=== PATIENT | male | born 1965 | race African-American/Black ===

== ENCOUNTER 2024-01-07 08:00 | Emergency (ER) | payer SELFPAY ==
[~2024-01-07] VITALS: Ht 180.3 cm; Wt 100.0 kg
[2024-01-07 08:06] VITALS: O2SAT 99
[2024-01-07 09:34] LABS: BASOPHILS % 0.2 % (0.0-2.0); DIFFERENTIAL COMMENT 0; EOSINOPHILS % 0.1 % (0.0-5.0); HEMATOCRIT. 35.5 % (42.0-52.0); LYMPHOCYTES % 7.2 % (20.0-50.0); MEAN CORPUSCULAR HEMOGLOBIN 23.3 pg (28.0-32.0); MEAN CORPUSCULAR HGB CONC 30.9 g/dL (31.0-37.0); MEAN CORPUSCULAR VOLUME 75.2 fL (80.0-94.0); MEAN PLATELET VOLUME 8.3 fl (7.4-10.4); MONOCYTES % 3.5 % (2.0-8.0); PLATELET 194 x1000/uL (130-400); RED BLOOD CELL COUNT 4.73 mill/uL (4.7-6.1); RED CELL DISTRIBUTION WIDTH 19.1 % (11.6-14.6); WHITE BLOOD COUNT 13.9 x1000/uL (4.5-11.0)
[2024-01-07 09:41] LABS: CHLORIDE 109 mEq/L (98-107); POTASSIUM 3.7 mEq/L (3.5-5.1); SODIUM 142 mEq/L (136-145)
[2024-01-07 09:42] LABS: CALCIUM 8.8 mg/dL (8.7-10.4); CARBON DIOXIDE 26 mEq/L (21-32)
[2024-01-07 09:46] LABS: TROPONIN I HIGH SENSITIVITY 6 ng/L (3.0-53)
[2024-01-07 09:47] LABS: CREATININE 0.9 mg/dL (0.6-1.3); GLUCOSE 132 mg/dL (70-105); UREA NITROGEN BLOOD 12 mg/dL (9-23)
[2024-01-07 09:48] LABS: ALBUMIN 3.7 g/dL (3.2-4.8)
[2024-01-07 09:49] LABS: ALANINE AMINOTRANSFERASE 13 IU/L (10-49); ASPARTATE AMINOTRANSFERASE 17 IU/L (<34); BILIRUBIN DIRECT 0.1 mg/dL (<=3.0); BILIRUBIN TOTAL 0.5 mg/dL (0.1-1.0)
[2024-01-07] MEDS: IOHEXOL-300 100 ML BOTTLE ONE (10:35)
[2024-01-07] MEDS: AMOXICILLIN/POTASSIUM CLAVULANATE 875/125MG TAB PO NR (11:49)
[2024-01-07] MEDS: TRAMADOL 50MG TABLET PO ONE (12:13)
[2024-01-07] MEDS ORDERED: AMOX1TAB16 MT (12:47)
[2024-01-07] MEDS ORDERED: NAPR-681 MT (12:47)
[2024-01-07 13:10] VITALS: BP 157/105; PULSE 88; RESP 15; TEMP 98.1
== END 2024-01-07 14:01 | disposition home or self-care (01) ==
LOC: ER 08:21
DX: K57.92 Diverticulitis of intestine, part unspecified, without perforation or abscess without bleeding (principal); I10 Essential (primary) hypertension
CPT/HCPCS: 80076; 80048; 83690; 85025; 86850; 86900; 86901; 84484; 36415; 74177; 93005; 99285; Q9967; Z7610 ×2

== ENCOUNTER 2024-04-24 06:54 | Inpatient (IN) | payer OTHER, MEDICAID ==
[2024-04-24] VITALS (61 sets, daily range): BP systolic 47–147; BP diastolic 37–124; PULSE 61–143; RESP 16–37; TEMP 36.22512–37.89192; O2SAT 83–100
[~2024-04-24] VITALS: Ht 175.3 cm; Wt 77.7 kg
[~2024-04-24 06:54] MED LIST: AMOX1TAB16 MT; NAPR-681 MT
[2024-04-24] MEDS ORDERED: NITROGLYCERIN 50MG PREMIX 250 ML IV PRN (07:15)
[2024-04-24] MEDS: NITROGLYCERIN 50MG PREMIX 250 ML IV PRN (07:20)
[2024-04-24 07:24] LABS: BASOPHILS % 1.1 % (0.0-2.0); EOSINOPHILS % 2.1 % (0.0-5.0); HEMATOCRIT. 37.5 % (42.0-52.0); HEMOGLOBIN. 11.7 g/dL (14.0-18.0); LYMPHOCYTES % 38.7 % (20.0-50.0); MEAN CORPUSCULAR HEMOGLOBIN 20.2 pg (28.0-32.0); MEAN CORPUSCULAR HGB CONC 31.2 g/dL (31.0-37.0); MEAN CORPUSCULAR VOLUME 64.9 fL (80.0-94.0); MEAN PLATELET VOLUME 8.8 fl (7.4-10.4); NEUTROPHILS % 50.1 % (40.0-76.0); PLATELET 244 x1000/uL (130-400); RED BLOOD CELL COUNT 5.78 mill/uL (4.7-6.1); RED CELL DISTRIBUTION WIDTH 22.5 % (11.6-14.6); WHITE BLOOD COUNT 11.1 x1000/uL (4.5-11.0)
[2024-04-24 07:37] LABS: CHLORIDE 108 mEq/L (98-107); INR 0.9; POTASSIUM 3.7 mEq/L (3.5-5.1); SODIUM 138 mEq/L (136-145)
[2024-04-24 07:38] LABS: CALCIUM 8.5 mg/dL (8.7-10.4); CARBON DIOXIDE 22 mEq/L (21-32)
[2024-04-24 07:42] LABS: ADD RBC MORPHOLOGY YES; DIFFERENTIAL COMMENT 1; TROPONIN I HIGH SENSITIVITY 20 ng/L (3.0-53)
[2024-04-24 07:43] LABS: UREA NITROGEN BLOOD 13 mg/dL (9-23)
[2024-04-24 07:44] LABS: GLUCOSE 314 mg/dL (70-105)
[2024-04-24 07:45] LABS: ALANINE AMINOTRANSFERASE 36 IU/L (10-49); ALBUMIN 4.1 g/dL (3.2-4.8); ASPARTATE AMINOTRANSFERASE 51 IU/L (<34); BILIRUBIN TOTAL 0.3 mg/dL (0.1-1.0); PROTEIN TOTAL 7.2 g/dL (6.0-8.3)
[2024-04-24 07:46] LABS: BILIRUBIN DIRECT < 0.1 mg/dL (<=3.0)
[2024-04-24] MEDS: SODIUM CHLORIDE 0.9% 1,000 ML IV ONE (07:46)
[2024-04-24 07:48] LABS: LACTIC ACID 5.4 mmol/L (0.4-2.0)
[2024-04-24] MEDS: CEFTRIAXONE 1GM/50ML 50 ML IV ONE (07:53)
[2024-04-24 08:06] LABS: CLARITY URINE CLEAR (CLEAR); COLOR URINE YELLOW (YELLOW); GLUCOSE URINE 3+ (NEGATIVE); KETONES URINE NEGATIVE (NEGATIVE); LEUKOCYTE ESTERASE URINE NEGATIVE (NEGATIVE); NITRITE URINE NEGATIVE (NEGATIVE); OCCULT BLOOD URINE NEGATIVE (NEGATIVE); PROTEIN URINE 2+ (NEGATIVE); SPECIFIC GRAVITY URINE 1.015 (1.005-1.030); UROBILINOGEN URINE 0.2 E.U./dL (0.2-1.0)
[2024-04-24 08:31] LABS: BG BASE EXCESS -1.7 mmol/L (-2.0-3.0); BG CARBOXYHEMOGLOBIN 0.6 % (0.5-1.5); BG FRACTION INSPIRED OXYGEN 100; BG HCO3 ACT 24.6 mmol/L (21.0-28.0); BG OXYHEMOGLOBIN 91.4 % (94.0-98.0); BG PH 7.327 (7.350-7.450); BG PO2 70.6 mmHg (83.0-108.0); BG SAMPLE SITE RIGHT RADIAL; BG TOTAL HEMOGLOBIN 11.7 g/dL (13.5-17.5); BG VENT MODE MASK - CPAP
[2024-04-24 08:35] LABS: BACTERIA URINE NONE SEEN; SQUAMOUS EPITHELIAL CELL URINE RARE /lpf (RARE/1+)
[2024-04-24 08:36] LABS: WBC URINE 0-2 /hpf (0-2)
[2024-04-24 08:37] LABS: RBC URINE 0-2 /hpf (0-2)
[2024-04-24] MEDS: AZITHROMYCIN 500MG/250ML 250 ML IV ONE (08:53)
[2024-04-24] MEDS ORDERED: ONDANSETRON HCL 4MG/2ML INJ IV PRN (09:15)
[2024-04-24] MEDS ORDERED: AZITHROMYCIN 500 MG in DEXT 5% WATER 250 ML IV SCH (09:15)
[2024-04-24] MEDS ORDERED: GUAIFENESIN 200MG/10ML SUGAR FREE UDC PO PRN (09:15)
[2024-04-24] MEDS ORDERED: ACETAMINOPHEN 325MG TABLET PO PRN ×2 (09:15)
[2024-04-24] MEDS ORDERED: DOCUSATE SODIUM 100MG CAPSULE PO PRN (09:15)
[2024-04-24] MEDS ORDERED: MAGNESIUM/ALUMINUM HYDROXIDE/SIMETHICONE 30ML UDC PO PRN (09:15)
[2024-04-24] MEDS ORDERED: DEXTROSE 50% WATER 50ML SYRINGE IV PRN (09:15)
[2024-04-24 09:58] LABS: IRON 28 ug/dL (65-175)
[2024-04-24] MEDS: NITROGLYCERIN OINT 1GM/INCH UDPKT TD SCH (09:58)
[2024-04-24] MEDS: FUROSEMIDE 40MG/4ML VIAL IVP SCH (09:58)
[2024-04-24 09:59] LABS: TRIGLYCERIDE 203 mg/dL (0-150)
[2024-04-24] MEDS: AMLODIPINE 5MG TABLET PO NR (09:59)
[2024-04-24 10:00] LABS: LDL CHOLESTEROL 126 mg/dL (5-100)
[2024-04-24 10:01] LABS: CHOLESTEROL 226 mg/dL (<200); HDL CHOLESTEROL 60 mg/dL (>55); TOTAL IRON BINDING CAPACITY 360 ug/dl (250-425)
[2024-04-24 10:02] LABS: T4 FREE 1.09 ng/dL (0.89-1.76); THYROID STIMULATING HORMONE 1.67 uIU/mL (0.55-4.78)
[2024-04-24 10:07] LABS: ETHANOL BLOOD < 10 mg/dL (<10)
[2024-04-24 10:08] LABS: TROPONIN I HIGH SENSITIVITY 84 ng/L (3.0-53)
[2024-04-24] MEDS: ENOXAPARIN 40MG/0.4ML SYR SUBCUT SCH (10:19)
[2024-04-24] MEDS ORDERED: PROPOFOL 10MG/ML 100ML 100 ML IV PRN (10:30)
[2024-04-24 11:00] LABS: BG BASE EXCESS -6.7 mmol/L (-2.0-3.0); BG CARBOXYHEMOGLOBIN 0.7 % (0.5-1.5); BG DEOXYHEMOGLOBIN 14.2 % (0.0-5.0); BG FRACTION INSPIRED OXYGEN 100; BG OXYGEN SATURATION 85.7 % (94.0-98.0); BG OXYHEMOGLOBIN 85.1 % (94.0-98.0); BG PCO2 57.6 mmHg (35.0-48.0); BG PH 7.199 (7.350-7.450); BG PO2 64.2 mmHg (83.0-108.0); BG SAMPLE SITE RIGHT RADIAL; BG TOTAL HEMOGLOBIN 13.5 g/dL (13.5-17.5); BG VENT MODE MASK - BIPAP
[2024-04-24] MEDS: INSULIN GLARGINE 100 UNITS/ML SUBCUT SCH (11:04)
[2024-04-24 11:07] LABS: TROPONIN I HIGH SENSITIVITY 128 ng/L (3.0-53)
[2024-04-24 11:35] LABS: ANISOCYTOSIS 3+; MICROCYTOSIS 3+
[2024-04-24 11:36] LABS: TARGET CELLS FEW
[2024-04-24 11:38] LABS: PLATELET ESTIMATE NORMAL
[2024-04-24 12:12] LABS: VITAMIN B12 SERUM 410 pg/mL (211-911)
[2024-04-24 12:13] LABS: FOLIC ACID (FOLATE) SERUM 15.26 ng/mL (>5.38)
[2024-04-24] MEDS ORDERED: PHENYLEPHRINE 50MG/250ML PMX 250 ML IV SCH (12:30)
[2024-04-24] MEDS ORDERED: PHENYLEPHRINE 50MG/250ML PMX IV PRN (12:45)
[2024-04-24] MEDS ORDERED: FENTANYL 2500MCG/250ML PMX 250 ML IV PRN (12:45)
[2024-04-24] MEDS: INSULIN LISPRO 100 UNITS/ML SUBCUT SCH (12:50)
[2024-04-24 12:54] LABS: BG BASE EXCESS -5.5 mmol/L (-2.0-3.0); BG CARBOXYHEMOGLOBIN 0.7 % (0.5-1.5); BG DEOXYHEMOGLOBIN 17.1 % (0.0-5.0); BG FRACTION INSPIRED OXYGEN 100; BG HCO3 ACT 23.7 mmol/L (21.0-28.0); BG METHEMOGLOBIN 0.1 % (0.5-1.5); BG OXYGEN SATURATION 82.8 % (94.0-98.0); BG OXYHEMOGLOBIN 82.1 % (94.0-98.0); BG PCO2 63.8 mmHg (35.0-48.0); BG PH 7.188 (7.350-7.450); BG PO2 58.2 mmHg (83.0-108.0); BG SAMPLE SITE LEFT RADIAL; BG TOTAL HEMOGLOBIN 13.4 g/dL (13.5-17.5); BG VENT MODE VENT - AC/PC
[2024-04-24] MEDS: PHENYLEPHRINE 50 MG in SODIUM CHLORIDE 0.9% 245 ML IV PRN (13:13)
[2024-04-24] MEDS: FENTANYL 2500MCG/250ML PMX 250 ML IV PRN (13:30)
[2024-04-24] MEDS: FUROSEMIDE 40MG/4ML VIAL IVP NR (13:34)
[2024-04-24] MEDS: BLOOD SUGAR DIAGNOSTIC STRIP TEST SCH (13:41)
[2024-04-24] MEDS ORDERED: IOHEXOL-350 100 ML BOTTLE ONE (13:45)
[2024-04-24] MEDS: IPRATROPIUM/ALBUTEROL 0.5-3(2.5)MG/3ML NEB NEB PRN (14:10)
[2024-04-24] MEDS ORDERED: NOREPINEPHRINE 8MG/250ML PMX 250 ML IV PRN (14:15)
[2024-04-24] MEDS: SODIUM BICARBONATE 8.4% 50MEQ/50ML SYR IV NR (14:20)
[2024-04-24 14:59] LABS: *AMPHETAMINES SCREEN URINE NEGATIVE (NEGATIVE); *BARBITURATES SCREEN URINE NEGATIVE (NEGATIVE); *BENZODIAZEPINES SCREEN URINE NEGATIVE (NEGATIVE); *COCAINE SCREEN URINE NEGATIVE (NEGATIVE)
[2024-04-24 15:00] LABS: METHADONE URINE SCREEN NEGATIVE (NEGATIVE); OPIATES URINE SCREEN NEGATIVE (NEGATIVE)
[2024-04-24 15:06] LABS: BG BASE EXCESS 0.4 mmol/L (-2.0-3.0); BG CARBOXYHEMOGLOBIN 0.4 % (0.5-1.5); BG DEOXYHEMOGLOBIN 0.5 % (0.0-5.0); BG FRACTION INSPIRED OXYGEN 100; BG HCO3 ACT 27.6 mmol/L (21.0-28.0); BG METHEMOGLOBIN 0.1 % (0.5-1.5); BG OXYGEN SATURATION 99.5 % (94.0-98.0); BG PCO2 56.5 mmHg (35.0-48.0); BG PH 7.307 (7.350-7.450); BG PO2 247.4 mmHg (83.0-108.0); BG SAMPLE SITE RIGHT BRACHIAL; BG TOTAL HEMOGLOBIN 12.5 g/dL (13.5-17.5); BG VENT MODE VENT - AC/PC
[2024-04-24 15:08] LABS: CANNABINOID URINE SCREEN NEGWIVE (NEGATIVE); ECSTASY MDMA SCREEN URINE NEGATIVE (NEGATIVE); PHENCYCLIDINE URINE SCREEN NEGATIVE (NEGATIVE)
[2024-04-24] MEDS: METHYLPREDNISOLONE SOD SUCC 40MG/ML (ACT-O-VIAL) IV SCH (15:31)
[2024-04-24] MEDS ORDERED: PHENYLEPHRINE 50MG/250ML PMX 250 ML IV PRN (16:00)
[2024-04-24] MEDS: PHENYLEPHRINE 100 MG in DEXT 5% WATER 240 ML IV PRN (16:07)
[2024-04-24] MEDS: ACETAMINOPHEN 650MG/20.3ML UDC PO PRN (16:08)
[2024-04-24 16:33] LABS: CREATINE KINASE MB FRACTION 7.2 ng/mL (0.5-3.6)
[2024-04-24] MEDS: PROPOFOL 10MG/ML 100ML 100 ML IV PRN (17:06)
[2024-04-24 17:43] LABS: HEMATOCRIT. 38.4 % (42.0-52.0); HEMOGLOBIN. 11.8 g/dL (14.0-18.0); MEAN CORPUSCULAR HGB CONC 30.6 g/dL (31.0-37.0); MEAN CORPUSCULAR VOLUME 65.5 fL (80.0-94.0); MEAN PLATELET VOLUME 8.5 fl (7.4-10.4); PLATELET 242 x1000/uL (130-400); RED BLOOD CELL COUNT 5.87 mill/uL (4.7-6.1); RED CELL DISTRIBUTION WIDTH 22.4 % (11.6-14.6); WHITE BLOOD COUNT 15.8 x1000/uL (4.5-11.0)
[2024-04-24 17:46] LABS: DIFFERENTIAL COMMENT 1
[2024-04-24 17:48] LABS: CHLORIDE 111 mEq/L (98-107); POTASSIUM 5.4 mEq/L (3.5-5.1); SODIUM 144 mEq/L (136-145)
[2024-04-24 17:49] LABS: CALCIUM 8.8 mg/dL (8.7-10.4); CARBON DIOXIDE 25 mEq/L (21-32)
[2024-04-24 17:54] LABS: GLUCOSE 86 mg/dL (70-105); UREA NITROGEN BLOOD 15 mg/dL (9-23)
[2024-04-24 17:57] LABS: PHOSPHORUS 6.1 mg/dL (2.5-4.9)
[2024-04-24 18:04] LABS: CREATININE 1.6 mg/dL (0.6-1.3)
[2024-04-24 18:40] LABS: ANISOCYTOSIS 2+; HYPOCHROMASIA 2+; MICROCYTOSIS 3+; PLATELET ESTIMATE NORMAL
[2024-04-24] MEDS ORDERED: ZOLPIDEM TARTRATE 5MG TABLET PO PRN (21:00)
[2024-04-24] MEDS: FAMOTIDINE 20MG TABLET PO SCH (21:21)
[2024-04-24] MEDS: SPIRONOLACTONE 25MG TABLET PO SCH (21:21)
[2024-04-25] VITALS (108 sets, daily range): BP systolic 67–156; BP diastolic 49–100; PULSE 56–104; RESP 16–29; TEMP 36.114–36.83628; O2SAT 98–100
[2024-04-25] MEDS: FENTANYL CITRATE/PF 2,500 MCG in SODIUM CHLORIDE 0.9% 200 ML IV PRN (03:41)
[2024-04-25] MEDS: FUROSEMIDE 40MG/4ML VIAL IVP SCH (05:46)
[2024-04-25 06:18] LABS: HEMATOCRIT. 34.3 % (42.0-52.0); HEMOGLOBIN. 10.3 g/dL (14.0-18.0); MEAN CORPUSCULAR HEMOGLOBIN 19.2 pg (28.0-32.0); MEAN CORPUSCULAR HGB CONC 29.9 g/dL (31.0-37.0); MEAN CORPUSCULAR VOLUME 64.3 fL (80.0-94.0); PLATELET 207 x1000/uL (130-400); RED BLOOD CELL COUNT 5.33 mill/uL (4.7-6.1); RED CELL DISTRIBUTION WIDTH 22.4 % (11.6-14.6)
[2024-04-25 06:51] LABS: DIFFERENTIAL COMMENT 1
[2024-04-25] MEDS: AMLODIPINE 10MG TABLET PO SCH (08:32)
[2024-04-25] MEDS: LOSARTAN 50 MG TABLET PO SCH (08:32)
[2024-04-25 08:44] LABS: CHLORIDE 110 mEq/L (98-107); POTASSIUM 4.4 mEq/L (3.5-5.1); SODIUM 144 mEq/L (136-145)
[2024-04-25 08:45] LABS: CALCIUM 8.7 mg/dL (8.7-10.4); CARBON DIOXIDE 27 mEq/L (21-32)
[2024-04-25 08:50] LABS: CREATININE 1.6 mg/dL (0.6-1.3); GLUCOSE 133 mg/dL (70-105); TRIGLYCERIDE 123 mg/dL (0-150); UREA NITROGEN BLOOD 24 mg/dL (9-23)
[2024-04-25 08:52] LABS: ALANINE AMINOTRANSFERASE 24 IU/L (10-49); ALBUMIN 3.4 g/dL (3.2-4.8); ASPARTATE AMINOTRANSFERASE 40 IU/L (<34); BILIRUBIN TOTAL 0.5 mg/dL (0.1-1.0); PHOSPHORUS 4.5 mg/dL (2.5-4.9); PROTEIN TOTAL 6.1 g/dL (6.0-8.3)
[2024-04-25] MEDS: CEFTRIAXONE 1GM/50ML 50 ML IV SCH (08:57)
[2024-04-25] MEDS ORDERED: CEFTRIAXONE 1GM/50ML 50 ML IV SCH (09:00)
[2024-04-25 11:09] LABS: HEMATOCRIT. 31.6 % (42.0-52.0); HEMOGLOBIN. 9.6 g/dL (14.0-18.0); MEAN CORPUSCULAR HEMOGLOBIN 19.4 pg (28.0-32.0); MEAN CORPUSCULAR HGB CONC 30.4 g/dL (31.0-37.0); MEAN CORPUSCULAR VOLUME 63.7 fL (80.0-94.0); MEAN PLATELET VOLUME 8.7 fl (7.4-10.4); PLATELET 176 x1000/uL (130-400); RED BLOOD CELL COUNT 4.96 mill/uL (4.7-6.1); RED CELL DISTRIBUTION WIDTH 22.5 % (11.6-14.6); WHITE BLOOD COUNT 16.6 x1000/uL (4.5-11.0)
[2024-04-25] MEDS: MAGNESIUM 2 G PREMIX 50 ML IV SCH (11:09)
[2024-04-25] MEDS: DOXYCYCLINE 100MG/100ML 100 ML IV SCH (11:09)
[2024-04-25 11:13] LABS: DIFFERENTIAL COMMENT 1
[2024-04-25 11:14] LABS: POTASSIUM 4.3 mEq/L (3.5-5.1)
[2024-04-25 11:15] LABS: CALCIUM 8.7 mg/dL (8.7-10.4)
[2024-04-25] MEDS: MIDAZOLAM 100MG/100ML PMX 100 ML IV PRN (11:15)
[2024-04-25 11:20] LABS: CREATININE 1.8 mg/dL (0.6-1.3)
[2024-04-25 11:21] LABS: BG BASE EXCESS 0.8 mmol/L (-2.0-3.0); BG CARBOXYHEMOGLOBIN 0.3 % (0.5-1.5); BG DEOXYHEMOGLOBIN 0.5 % (0.0-5.0); BG FRACTION INSPIRED OXYGEN 60; BG METHEMOGLOBIN 0.3 % (0.5-1.5); BG OXYGEN SATURATION 99.5 % (94.0-98.0); BG OXYHEMOGLOBIN 98.9 % (94.0-98.0); BG PH 7.563 (7.350-7.450); BG PO2 245.2 mmHg (83.0-108.0); BG SAMPLE SITE RIGHT RADIAL; BG TOTAL HEMOGLOBIN 10.3 g/dL (13.5-17.5); BG VENT MODE VENT - P/C
[2024-04-25] MEDS ORDERED: LIDOCAINE HCL 1% 10 MG/ML 10ML VIAL ONE (11:26)
[2024-04-25] MEDS ORDERED: ACETYLCYSTEINE 200MG/ML 20% VIAL 10ML INH SCH (14:00)
[2024-04-25 14:12] LABS: *AMPHETAMINES SCREEN URINE NEGATIVE (NEGATIVE); *BARBITURATES SCREEN URINE NEGATIVE (NEGATIVE); *BENZODIAZEPINES SCREEN URINE PRESUMPTIVE POSITIVE (NEGATIVE); *COCAINE SCREEN URINE NEGATIVE (NEGATIVE); CANNABINOID URINE SCREEN NEGATIVE (NEGATIVE); ECSTASY MDMA SCREEN URINE NEGATIVE (NEGATIVE); METHADONE URINE SCREEN NEGATIVE (NEGATIVE); OPIATES URINE SCREEN NEGATIVE (NEGATIVE); PHENCYCLIDINE URINE SCREEN NEGATIVE (NEGATIVE)
[2024-04-25] MEDS: IPRATROPIUM/ALBUTEROL 0.5-3(2.5)MG/3ML NEB NEB SCH (14:27)
[2024-04-25] MEDS: ACETYLCYSTEINE 200MG/ML 20% VIAL 4ML INH SCH (14:27)
[2024-04-25 23:24] LABS: ANISOCYTOSIS 2+; PLATELET ESTIMATE NORMAL
[2024-04-25] MEDS: DEXMEDETOMIDINE 400 MCG/100 ML 100 ML IV PRN (23:24)
[2024-04-25 23:25] LABS: HYPOCHROMASIA 2+; MICROCYTOSIS 3+
[2024-04-25 23:38] LABS: ANISOCYTOSIS 2+; HYPOCHROMASIA 2+; MICROCYTOSIS 3+; PLATELET ESTIMATE NORMAL
[2024-04-26] VITALS (92 sets, daily range): BP systolic 101–184; BP diastolic 60–111; PULSE 54–94; RESP 12–29; TEMP 36.33624–37.00296; O2SAT 96–100
[2024-04-26] MEDS: KETOROLAC 15MG/ML VIAL IV PRN (00:07)
[2024-04-26] MEDS: CLONIDINE 0.1MG TABLET PO PRN (03:21)
[2024-04-26 05:20] LABS: HEMATOCRIT. 29.6 % (42.0-52.0); HEMOGLOBIN. 9.7 g/dL (14.0-18.0); MEAN CORPUSCULAR HEMOGLOBIN 20.5 pg (28.0-32.0); MEAN CORPUSCULAR HGB CONC 32.7 g/dL (31.0-37.0); MEAN CORPUSCULAR VOLUME 62.5 fL (80.0-94.0); MEAN PLATELET VOLUME 9.1 fl (7.4-10.4); PLATELET 161 x1000/uL (130-400); RED BLOOD CELL COUNT 4.74 mill/uL (4.7-6.1); RED CELL DISTRIBUTION WIDTH 21.9 % (11.6-14.6); WHITE BLOOD COUNT 17.4 x1000/uL (4.5-11.0)
[2024-04-26 05:38] LABS: CHLORIDE 110 mEq/L (98-107); POTASSIUM 3.4 mEq/L (3.5-5.1); SODIUM 144 mEq/L (136-145)
[2024-04-26 05:39] LABS: CARBON DIOXIDE 23 mEq/L (21-32)
[2024-04-26 05:44] LABS: CREATININE 1.7 mg/dL (0.6-1.3); GLUCOSE 183 mg/dL (70-105); UREA NITROGEN BLOOD 39 mg/dL (9-23)
[2024-04-26 05:46] LABS: PHOSPHORUS 2.6 mg/dL (2.5-4.9)
[2024-04-26] MEDS: HYDRALAZINE 20MG/ML VIAL IV NR (06:02)
[2024-04-26 06:23] LABS: DIFFERENTIAL COMMENT 1
[2024-04-26 07:41] LABS: ANISOCYTOSIS 3+; MICROCYTOSIS 3+; PLATELET ESTIMATE NORMAL
[2024-04-26 10:24] LABS: BG BASE EXCESS 2.6 mmol/L (-2.0-3.0); BG CARBOXYHEMOGLOBIN 0.3 % (0.5-1.5); BG DEOXYHEMOGLOBIN 1.2 % (0.0-5.0); BG METHEMOGLOBIN 0.3 % (0.5-1.5); BG OXYGEN SATURATION 98.8 % (94.0-98.0); BG OXYHEMOGLOBIN 98.2 % (94.0-98.0); BG PCO2 23.2 mmHg (35.0-48.0); BG PH 7.614 (7.350-7.450); BG PO2 129.1 mmHg (83.0-108.0); BG SAMPLE SITE RIGHT RADIAL; BG TOTAL HEMOGLOBIN 10.6 g/dL (13.5-17.5); BG VENT MODE VENT - P/C
[2024-04-26 15:33] LABS: BG BASE EXCESS 0.7 mmol/L (-2.0-3.0); BG CARBOXYHEMOGLOBIN 0.3 % (0.5-1.5); BG DEOXYHEMOGLOBIN 3.2 % (0.0-5.0); BG HCO3 ACT 24.6 mmol/L (21.0-28.0); BG METHEMOGLOBIN 0.3 % (0.5-1.5); BG OXYGEN SATURATION 96.8 % (94.0-98.0); BG OXYHEMOGLOBIN 96.2 % (94.0-98.0); BG PCO2 36.7 mmHg (35.0-48.0); BG PH 7.445 (7.350-7.450); BG PO2 97.2 mmHg (83.0-108.0); BG SAMPLE SITE RIGHT RADIAL; BG TOTAL HEMOGLOBIN 10.2 g/dL (13.5-17.5); BG VENT MODE VENT - SIMV
[2024-04-26] MEDS ORDERED: NOREPINEPHRINE 8MG/250ML PMX 250 ML IV PRN (20:00)
[2024-04-27] VITALS (24 sets, daily range): BP systolic 104–185; BP diastolic 64–130; PULSE 82–105; RESP 16–23; TEMP 36.61404–37.00296; O2SAT 94–100
[2024-04-27] MEDS: CLONIDINE 0.2MG TABLET PO PRN (03:32)
[2024-04-27 06:42] LABS: HEMATOCRIT 31.1 % (42.0-52.0); HEMOGLOBIN 9.7 g/dL (14.0-18.0); MEAN CORPUSCULAR HEMOGLOBIN 19.9 pg (28.0-32.0); MEAN CORPUSCULAR HGB CONC 31.3 g/dL (31.0-37.0); MEAN CORPUSCULAR VOLUME 63.5 fL (80.0-94.0); PLATELET 156 x1000/uL (130-400); RED CELL DISTRIBUTION WIDTH 22.8 % (11.6-14.6); WHITE BLOOD COUNT 20.6 x1000/uL (4.5-11.0)
[2024-04-27 07:19] LABS: CARBON DIOXIDE 28 mEq/L (21-32); CHLORIDE 116 mEq/L (98-107); POTASSIUM 3.3 mEq/L (3.5-5.1); SODIUM 150 mEq/L (136-145)
[2024-04-27 07:21] LABS: CALCIUM 8.9 mg/dL (8.7-10.4)
[2024-04-27 07:25] LABS: CREATININE 1.3 mg/dL (0.6-1.3); GLUCOSE 93 mg/dL (70-105)
[2024-04-27 07:26] LABS: UREA NITROGEN BLOOD 38 mg/dL (9-23)
[2024-04-27 07:28] LABS: PHOSPHORUS 4.5 mg/dL (2.5-4.9)
[2024-04-27] MEDS ORDERED: PREDNISONE 20MG TABLET NG SCH (09:00)
[2024-04-27] MEDS: ENOXAPARIN 30MG/0.3ML SYR SUBCUT SCH (09:42)
[2024-04-27] MEDS: LABETALOL 5MG/ML 4ML INJ IV NR (09:43)
[2024-04-27] MEDS: ASPIRIN 81MG TABLET PO SCH (09:43)
[2024-04-27] MEDS: PREDNISONE 20MG TABLET NG SCH (09:43)
[2024-04-28] VITALS (8 sets, daily range): BP systolic 123–154; BP diastolic 86–98; PULSE 78–85; RESP 18–20; TEMP 36.44736–37.05852; O2SAT 95–100
[2024-04-28] MEDS: PREDNISONE 20MG TABLET PO SCH (08:37)
[2024-04-28] MEDS ORDERED: IODIXANOL 320MG/ML 100 ML BOTTLE IV ONE (11:13)
[2024-04-28] MEDS ORDERED: HEPARIN 1000 UNITS/ML 10ML ONE (11:13)
[2024-04-28] MEDS ORDERED: VERAPAMIL HCL 2.5 MG/1 ML 2ML VIAL IV ONE (11:13)
[2024-04-28] MEDS ORDERED: LIDOCAINE HCL 1% 10 MG/ML 10ML VIAL ONE (11:13)
[2024-04-28] MEDS ORDERED: DIPHENHYDRAMINE 50MG/ML VIAL ONE (11:13)
[2024-04-28] MEDS ORDERED: MIDAZOLAM HCL 2 MG/2 ML VIAL ONE (11:49)
[2024-04-28] MEDS ORDERED: FENTANYL CITRATE/PF 50MCG/ML 2ML VIAL ONE (11:49)
[2024-04-28] MEDS ORDERED: HYDRALAZINE 20MG/ML VIAL ONE (12:06)
[2024-04-28] MEDS ORDERED: ATROPINE SULFATE 1MG/10ML SYR IV PRN (12:45)
[2024-04-28] MEDS: GUAIFENESIN/DM 600MG/30MG ER TAB 12HR PO PRN (16:18)
[2024-04-28 18:38] LABS: CHLORIDE 112 mEq/L (98-107); POTASSIUM 4.2 mEq/L (3.5-5.1); SODIUM 148 mEq/L (136-145)
[2024-04-28 18:39] LABS: CALCIUM 9.5 mg/dL (8.7-10.4); CARBON DIOXIDE 30 mEq/L (21-32)
[2024-04-28 18:44] LABS: GLUCOSE 110 mg/dL (70-105); UREA NITROGEN BLOOD 22 mg/dL (9-23)
[2024-04-29] VITALS (8 sets, daily range): BP systolic 107–139; BP diastolic 53–90; PULSE 67–97; RESP 18–20; TEMP 36.33624–36.72516; O2SAT 94–98
[2024-04-29 07:52] LABS: HEMATOCRIT. 36.6 % (42.0-52.0); HEMOGLOBIN. 10.9 g/dL (14.0-18.0); MEAN CORPUSCULAR HEMOGLOBIN 19.4 pg (28.0-32.0); MEAN CORPUSCULAR HGB CONC 29.9 g/dL (31.0-37.0); MEAN CORPUSCULAR VOLUME 64.7 fL (80.0-94.0); MEAN PLATELET VOLUME 9.1 fl (7.4-10.4); PLATELET 158 x1000/uL (130-400); RED BLOOD CELL COUNT 5.65 mill/uL (4.7-6.1); RED CELL DISTRIBUTION WIDTH 22.8 % (11.6-14.6); WHITE BLOOD COUNT 13.2 x1000/uL (4.5-11.0)
[2024-04-29 07:57] LABS: CARBON DIOXIDE 30 mEq/L (21-32); CHLORIDE 109 mEq/L (98-107); POTASSIUM 3.9 mEq/L (3.5-5.1); SODIUM 144 mEq/L (136-145)
[2024-04-29 07:58] LABS: CALCIUM 9.5 mg/dL (8.7-10.4)
[2024-04-29 08:03] LABS: GLUCOSE 84 mg/dL (70-105); UREA NITROGEN BLOOD 20 mg/dL (9-23)
[2024-04-29] MEDS ORDERED: FUROSEMIDE 40MG/4ML VIAL IVP SCH (09:00)
[2024-04-29 09:27] LABS: DIFFERENTIAL COMMENT 1
[2024-04-29] MEDS: FUROSEMIDE 20MG TABLET PO SCH (09:45)
[2024-04-29] MEDS: ACETAMINOPHEN 325MG TABLET PO PRN (13:03)
[2024-04-29] MEDS ORDERED: FURO-152 MT (18:05)
[2024-04-29] MEDS ORDERED: AMLO10TA80 PO (18:05)
[2024-04-29] MEDS ORDERED: SPIR25TA MT (18:05)
[2024-04-29] MEDS ORDERED: ASPI-1160 PO (18:05)
[2024-04-29] MEDS ORDERED: LOSA50TA41 PO (18:05)
[2024-04-29] MEDS ORDERED: ISOS120T13 MT (18:05)
[2024-04-29] MEDS ORDERED: FAMO20TA8 PO (18:05)
[2024-04-29] MEDS: IPRATROPIUM/ALBUTEROL 0.5-3(2.5)MG/3ML NEB NEB PRN (22:06)
[2024-04-29 23:13] LABS: NUCLEATED RED BLOOD CELLS 1 /100 WBC; PLATELET ESTIMATE NORMAL
[2024-04-29 23:14] LABS: ANISOCYTOSIS 2+; HYPOCHROMASIA 2+; MICROCYTOSIS 3+
[2024-04-30] VITALS: BP 147/89; PULSE 78; RESP 20; TEMP 36.50292; O2SAT 96
[2024-04-30 04:00] VITALS: BP 148/93; PULSE 72; RESP 20; TEMP 36.3918; O2SAT 98
[2024-04-30 05:35] VITALS: PULSE 82; RESP 16; O2SAT 95
[2024-04-30 08:00] VITALS: BP 171/120; PULSE 91; RESP 20; TEMP 36.3918; TEMP 36.39180; O2SAT 98
[2024-04-30 09:34] VITALS: BP 191/110; PULSE 90; TEMP 97.5; O2SAT 99
== END 2024-04-30 09:40 | disposition home or self-care (01) | DRG 871 ==
LOC: ER 06:54 → MICUSO 08:47 → EDBEDREQTM 08:52 → EDBEDREQ 08:52 → 7EST 04-27 21:00
PROVIDERS: ADMIT Internal Medicine; ATTEND Internal Medicine
PROC: 5A09357 Assistance with Respiratory Ventilation, Less than 24 Consecutive Hours, Continuous Positive Airway Pressure (ICD-10-PCS; principal; 2024-04-24)
PROC: 5A1945Z Respiratory Ventilation, 24-96 Consecutive Hours (ICD-10-PCS; 2024-04-24)
PROC: 0BH17EZ Insertion of Endotracheal Airway into Trachea, Via Natural or Artificial Opening (ICD-10-PCS; 2024-04-24)
PROC: 02HV33Z Insertion of Infusion Device into Superior Vena Cava, Percutaneous Approach (ICD-10-PCS; 2024-04-25)
PROC: B548ZZA Ultrasonography of Superior Vena Cava, Guidance (ICD-10-PCS; 2024-04-25)
PROC: 4A023N7 Measurement of Cardiac Sampling and Pressure, Left Heart, Percutaneous Approach (ICD-10-PCS; 2024-04-28)
PROC: B211YZZ Fluoroscopy of Multiple Coronary Arteries using Other Contrast (ICD-10-PCS; 2024-04-28)
DX: A41.9 Sepsis, unspecified organism (principal); G92.8 Other toxic encephalopathy; I21.4 Non-ST elevation (NSTEMI) myocardial infarction; J96.01 Acute respiratory failure with hypoxia; I46.9 Cardiac arrest, cause unspecified; J96.02 Acute respiratory failure with hypercapnia; N17.0 Acute kidney failure with tubular necrosis; R65.21 Severe sepsis with septic shock; I50.41 Acute combined systolic (congestive) and diastolic (congestive) heart failure; J12.9 Viral pneumonia, unspecified; E87.20 Acidosis, unspecified; E87.0 Hyperosmolality and hypernatremia; I16.1 Hypertensive emergency; E87.1 Hypo-osmolality and hyponatremia; E87.29 Other acidosis; Z20.822 Contact with and (suspected) exposure to COVID-19; D63.8 Anemia in other chronic diseases classified elsewhere; E66.9 Obesity, unspecified; E83.39 Other disorders of phosphorus metabolism; I11.0 Hypertensive heart disease with heart failure; I25.10 Atherosclerotic heart disease of native coronary artery without angina pectoris; Z68.25 Body mass index [BMI] 25.0-25.9, adult; Z79.899 Other long term (current) drug therapy
CPT/HCPCS: 36415; 36573; 36600; 71045; 71275; 80048; 80053; 80061; 80076; 80305; 80320; 81003; 82375; 82550; 82553; 82607; 82746; 82805; 82962; 83036; 83540; 83550; 83605; 83735; 83880; 84100; 84145; 84439; 84443; 84478; 84484; 85025; 85027; 86850; 86900; 87070; 87426; 92610; 93005; 93306; 93458; 93970; 94003; 94640; 94660; 99291; C1725; C1769; C1887; C1893; J0360; J0456; J0696; J1200; J1644; J1650; J1815; J1885; J1940; J2250; J2704; J2920; J3010; J3475; J3490; J7030; J7050; J7060; J7512; J7608; Q9957; Q9967; G0480